=== PATIENT | female | born 2000 | race Two or more races ===

== ENCOUNTER 2023-05-01 11:03 | Outpatient (CLI) | payer OTHER | END 2023-05-01 11:04 | disposition home or self-care (01) | LOC: PRENATAL 11:03 | PROVIDERS: ATTEND Obstetrics & Gynecology Maternal & Fetal Medicine | DX: O35.9XX0 Maternal care for (suspected) fetal abnormality and damage, unspecified, not applicable or unspecified (principal); O35.3XX0 Maternal care for (suspected) damage to fetus from viral disease in mother, not applicable or unspecified; O44.00 Complete placenta previa NOS or without hemorrhage, unspecified trimester; O28.1 Abnormal biochemical finding on antenatal screening of mother ==